=== PATIENT | female | born 1970 | race Caucasian/White ===

== ENCOUNTER 2016-12-01 11:55 | Emergency (ER) | payer MEDICAID ==
--- NOTE | 2016-12-01 12:49 | ED Physician Chart ---
Chief Complaint/HPI - Patient Information Date Seen:: 12/01/16 Time Seen:: 12:35 Chief Complaint:: right earache, cough, headache and subjective fever History of Present Illness:: The patient had onset yesterday of right earache cough, headache and subjective fever. Allergies:: Allergies Allergy/AdvReac Type Severity Reaction Status Date / Time No Known Allergies Allergy Verified 02/13/16 13:14 Vitals:: Vital Signs - 8 hr 12/01/16 12:08 Temp 98.7 F HR 67 RR 16 O2 Sat % 96 Historian:: Patient Review:: Nurse's Note Reviewed Review of Systems - Review of Systems General/Constitutional: Fever Skin: No skin lesions Head: Headache Eyes: No loss of vision ENT: Earache Neck: No neck pain Cardio Vascular: No chest pain Pulmonary: No SOB, No cough GI: No nausea, No vomiting G/U: No dysuria Musculoskeletal: No bone or joint pain, No back pain, No muscle pain Endocrine: No polyuria, No polydipsia Psychiatric: No prior psych history Hematopoietic: No bruising Allergic/Immuno: No urticaria Neurological: No syncope, No focal symptoms, No dizziness Past Medical History - Past Medical History Past Medical History: No significant medical hx Family History: None Social History: Non Smoker, No Alcohol Surgical History: None Psychiatricy History: None Medication: None Family Medical History - Family Member Father History Unknown: Yes Ethnicity: Living Status: Hx Family Cancer: No Hx Family Coronary Artery Disease: No Hx Family Congestive Heart Failure: No Hx Family Hypertension: No Hx Family Stroke: No Hx Family Diabetes: Yes Hx Family Seizures: No Hx Family Dementia: No Hx Family AIDS: No Hx Family HIV: No Hx Family COPD: No Hx Family Hepatitis: No Hx Family Psychiatric Problems: No Hx Family Tuberculosis: No Mother History Unknown: Yes Ethnicity: Living Status: Still Living Hx Family Diabetes: Yes Physical Exam - Physical Examination General/Constitutional: Well-developed, well-nourished, Alert, No distress Head: Atraumatic Eyes: Lids, conjuctiva normal, PERRL Skin: Nl inspection, No rash, No skin lesions, No ecchymosis, Well hydrated, No lymphadenopathy ENMT: External ears, nose nl, Nasal exam nl, Lips, teeth, gums nl, Oropharynx nl , Tonsils nl Other ENMT comments:: About 20% of right tympanic membrane erythematous; left tympanic membrane clear Neck: No nuchal rigidity Respiratory: Nl effort/Exclusion, Clear to Auscultation, No Wheeze/Rhonchi/Rales Cardio Vascular: RRR, No murmur, gallop, rubs GI: No tenderness/rebounding/guarding, No organomegaly, No hernia, Normal BS's, Nondistended, No mass/bruits : No CVA tenderness Extremities: No tenderness or effusion Neuro/Psych: Alert/oriented Misc: Normal back, No paraspinal tenderness ED Septic Shock - . Is Septic Shock (SBP<90, OR Lactate>4 mmol\L) present?: No - <6hrs of presentation: Vital Signs: Vital Signs - 8 hr 12/01/16 12:08 Temp 98.7 F HR 67 RR 16 O2 Sat % 96 Reassessment (Disposition) - Reassessment Reassessment Condition:: Unchanged - Diagnosis Diagnosis:: Acute viral syndrome; right otitis media - Aftercare/Follow up Instructions Aftercare/Follow-Up Instructions:: Refer to Discharge Instructions Medication Prescribed:: Amoxicillin 500 mg 3 times a day for 1 week - Patient Disposition Discharge/Transfer:: Home Condition at Disposition:: Stable, Unchanged
== END 2016-12-01 13:30 | disposition home or self-care (01) ==
LOC: ER 11:55
DX: B34.9 Viral infection, unspecified (principal); H66.91 Otitis media, unspecified, right ear
CPT/HCPCS: Z7502

== ENCOUNTER 2017-03-22 20:16 | Emergency (ER) | payer MEDICAID ==
[2017-03-22] MEDS ORDERED: Bacitracin pkt 1 gm Pkt TP ONE (21:41)
--- NOTE | 2017-03-22 21:53 | ED Physician Chart ---
ED Chief Complaint/HPI - Patient Information Date Seen:: 03/22/17 Time Seen:: 21:15 Chief Complaint:: Right elbow laceration History of Present Illness:: 46 yo female had a laceration to her right elbow when she tripped and fell in the bathroom a few hours prior to ER visit. The laceration did not affect ROM of the right elbow joint. Allergies:: Allergies Allergy/AdvReac Type Severity Reaction Status Date / Time No Known Allergies Allergy Verified 03/22/17 20:25 Vitals:: Vital Signs - 8 hr 03/22/17 20:20 Temp 97.9 F HR 69 RR 18 BP 140/87 O2 Sat % 97 ED Review of Systems - Review of Systems General/Constitutional: No fever Skin: Skin lesions Head: No headache Eyes: No loss of vision ENT: No earache Neck: No neck pain Cardio Vascular: No chest pain Pulmonary: No SOB GI: No nausea Psychiatric: No prior psych history ED Past Medical History - Past Medical History Past Medical History: No significant medical hx Social History: Non Smoker, No Alcohol, No Drug Use Family Medical History - Family Member Father History Unknown: Yes Ethnicity: Living Status: Hx Family Cancer: No Hx Family Coronary Artery Disease: No Hx Family Congestive Heart Failure: No Hx Family Hypertension: No Hx Family Stroke: No Hx Family Diabetes: Yes Hx Family Seizures: No Hx Family Dementia: No Hx Family AIDS: No Hx Family HIV: No Hx Family COPD: No Hx Family Hepatitis: No Hx Family Psychiatric Problems: No Hx Family Tuberculosis: No Mother History Unknown: Yes Ethnicity: Living Status: Still Living Hx Family Diabetes: Yes ED Physical Exam - Physical Examination General/Constitutional: Awake Head: Atraumatic Eyes: PERRL Neck: No nuchal rigidity Respiratory: Clear to Auscultation Cardio Vascular: RRR, No murmur, gallop, rubs, NL S1 S2 GI: No tenderness/rebounding/guarding Other Extremities comments:: Right posterior elbow laceration 4cm in length, the depth of laceration to subcutaneous level. ROM of the right elbow joint appear to be intact. ED Assessment - Assessment General Assessment: Right elbow laceration Assessment/Comments:: Laceration repair TDap Keflex 500mg bid x 7 days Suture removal in 10-14 days Location:: Right posterior elbow Laceration Type:: Simple Wound Length: 4 cm Prep/Irrigation:: NS, hydrogen peroxide, betadine Comments: After local anesthesia with 1% lidocaine, three horizontal mattress sutures with 3.0 Prolene were placed. Patient tolerated well. ED Septic Shock - . Is Septic Shock (SBP<90, OR Lactate>4 mmol\L) present?: No - <6hrs of presentation: Vital Signs: Vital Signs - 8 hr 03/22/17 20:20 Temp 97.9 F HR 69 RR 18 BP 140/87 O2 Sat % 97 ED Reassessment (Disposition) - Reassessment Reassessment Condition:: Improved - Patient Disposition Discharge/Transfer:: Home ED Discharge Plan - Patient Disposition Admit/Discharge/Transfer: PT DISCHARGED HOME Condition at Disposition: Improved Prescriptions: Cephalexin [Keflex] 500 mg PO BID #10 cap Instructions: Laceration Care, Adult Additional Instructions: FOLLOW UP WITH YOUR REGULAR DOCTOR FOR SUTURE REMOVAL.
== END 2017-03-22 22:15 | disposition home or self-care (01) ==
LOC: ER 20:16
DX: S51.011A Laceration without foreign body of right elbow, initial encounter (principal); W01.0XXA Fall on same level from slipping, tripping and stumbling without subsequent striking against object, initial encounter; Y93.89 Activity, other specified; Y92.012 Bathroom of single-family (private) house as the place of occurrence of the external cause; Y99.8 Other external cause status
CPT/HCPCS: 12002; A4217; Z7502; Z7610

== ENCOUNTER 2017-04-08 20:51 | Emergency (ER) | payer MEDICAID ==
--- NOTE | 2017-04-08 22:30 | ER Physician Documentation ---
DATE OF SERVICE: 04/08/2017 EMERGENCY ROOM EVALUATION AND TREATMENT A 46-year-old female patient. Full code. This is a patient who came here and had injury into the right elbow and one of our ER colleague did 3 stitches on the patient on 03/23 at 1917. She was advised to come back in 5-7 days, but she did not come. She said she was busy and she came today for removal of the stitches. The area was cleaned with Betadine solution and then the stitches were removed and the scissor was discarded into the section behind the patient's bed and other objects were thrown away. Sterile dressing will be applied by the nurse in charge over there. The patient does not have any other significant illness. She had x 1. PHYSICAL EXAMINATION: Her vital signs were temperature 97.1, pulse of 67, respirations 18. Blood pressure was 139/92, slightly high, but may be because of anxiety. Code status was full. ALLERGIES: None known. So, the patient was examined and the 3 stitches that were there were removed and no residual stitches were left in place and the dressing will be applied with Band-Aid or with some bacitracin or Neosporin and then patient will go home. No need of any antibiotics etc., need to be given. In conclusion, the patient has 1 in the past and right now, the patient had 3 stitches that were removed by me without any complication. The patient will be notified that she has mild hypertension to keep an eye on the blood pressure and to take low salt and to follow up with her doctor. Dr. Carbone dictating this note on the patient, who came here for suture removal. JOB# [id number]
== END 2017-04-08 21:15 | disposition home or self-care (01) ==
LOC: ER 20:51
DX: Z48.02 Encounter for removal of sutures (principal)
CPT/HCPCS: Z7502

== ENCOUNTER 2017-09-03 17:20 | Emergency (ER) | payer MEDICAID ==
[2017-09-03] MEDS ORDERED: Sodium Chloride 0.9% 1,000 ML IV ONE (18:20)
--- NOTE | 2017-09-03 18:29 | ED Physician Chart ---
ED Chief Complaint/HPI - Patient Information Date Seen:: 09/03/17 Time Seen:: 18:00 Chief Complaint:: fever headache sorethroat History of Present Illness:: 47 yr old female with sore throat headache fever no vomiting some nausea no dizziness no surgeries no cough but fever no recent travel Allergies:: Allergies Allergy/AdvReac Type Severity Reaction Status Date / Time No Known Allergies Allergy Verified 04/08/17 21:04 Vitals:: Vital Signs - 8 hr 09/03/17 17:27 Temp 100.3 F HR 119 RR 22 BP 154/78 O2 Sat % 97 ED Review of Systems - Review of Systems General/Constitutional: No fever, No chills, No weight loss, No weakness, No diaphoresis, No edema, No loss of appetite Skin: No skin lesions, No rash, No bruising Head: Headache Eyes: No loss of vision, No pain, No diplopia ENT: Sore throat Neck: No neck pain, No swelling, No thyromegaly, No stiffness, No mass noted Cardio Vascular: No chest pain, No palpitations, No PND, No orthopnea, No edema Pulmonary: No SOB, No cough, No sputum, No wheezing GI: No nausea, No vomiting, No diarrhea, No pain, No melena, No hematochezia, No constipation, No hematemesis G/U: No dysuria, No frequency, No hematuria Musculoskeletal: No bone or joint pain, No back pain, No muscle pain Endocrine: No polyuria, No polydipsia Psychiatric: No prior psych history, No depression, No anxiety, No suicidal ideation Hematopoietic: No bruising, No lymphadenopathy Allergic/Immuno: No urticaria, No angioedema Neurological: No syncope, No focal symptoms, No weakness, No paresthesia, No headache, No seizure, No dizziness, No confusion, No vertigo ED Past Medical History - Past Medical History Past Medical History: No significant medical hx Family Medical History - Family Member Father History Unknown: Yes Ethnicity: Living Status: Hx Family Cancer: No Hx Family Coronary Artery Disease: No Hx Family Congestive Heart Failure: No Hx Family Hypertension: No Hx Family Stroke: No Hx Family Diabetes: Yes Hx Family Seizures: No Hx Family Dementia: No Hx Family AIDS: No Hx Family HIV: No Hx Family COPD: No Hx Family Hepatitis: No Hx Family Psychiatric Problems: No Hx Family Tuberculosis: No Mother History Unknown: Yes Ethnicity: Living Status: Still Living Hx Family Diabetes: Yes ED Physical Exam - Physical Examination General/Constitutional: Awake, Well-developed, well-nourished, Alert, No distress, GCS 15, Non-toxic appearing, Ambulatory Head: Atraumatic Eyes: Lids, conjuctiva normal, PERRL, EOMI Skin: Nl inspection, No rash, No skin lesions, No ecchymosis, Well hydrated, No lymphadenopathy ENMT: External ears, nose nl, Nasal exam nl, Lips, teeth, gums nl Neck: Nontender, Full ROM w/o pain, No JVD, No nuchal rigidity, No bruit, No mass, No stridor Respiratory: Nl effort/Exclusion, Clear to Auscultation, No Wheeze/Rhonchi/Rales Cardio Vascular: RRR, No murmur, gallop, rubs, NL S1 S2 GI: No tenderness/rebounding/guarding, No organomegaly, No hernia, Normal BS's, Nondistended, No mass/bruits, No McBurney tenderness : No CVA tenderness Extremities: No tenderness or effusion, Full ROM, normal strength in all extremities, No edema, Normal digits & nails Neuro/Psych: Alert/oriented, DTR's symmetric, Normal sensory exam, Normal motor strength, Judgement/insight normal, Mood normal, Normal gait, No focal deficits Misc: Normal back, No paraspinal tenderness ED Assessment - Assessment General Assessment: fever headache sorethroat ED Septic Shock - . Is Septic Shock (SBP<90, OR Lactate>4 mmol\L) present?: No - <6hrs of presentation: Vital Signs: Vital Signs - 8 hr 09/03/17 17:27 Temp 100.3 F HR 119 RR 22 BP 154/78 O2 Sat % 97 ED Reassessment (Disposition) - Reassessment Reassessment Condition:: Improved - Patient Disposition Discharge/Transfer:: Home
[2017-09-03 18:41] LABS: % BASOPHILS 0.6 % (0.0-2.0); % EOSINOPHILS 1.2 % (0.0-5.0); % LYMPHOCYTES 7.9 % (20.0-50.0); % NEUTROPHILS 82.3 % (40.0-80.0); BASOPHILE ABSOLUTE 0.1 Th/cumm (0-0.2); EOSINOPHILE ABSOLUTE 0.2 Th/cmm (0.1-0.4); HEMATOCRIT 40.2 % (41.0-60); HEMOGLOBIN 13.2 gm/dL (12-16); LYMPHOCYTE ABSOLUTE 1.2 Th/cmm (1.5-3.0); MEAN CORPUSCULAR HEMOGLOBIN 30.5 pg (27.0-31.0); MEAN CORPUSCULAR HGB CONC 32.8 pg (28.0-36.0); MEAN PLATELET VOLUME 8.3 fl; MONOCYTE ABSOLUTE 1.2 Th/cmm (0.3-1.0); NEUTROPHILE ABSOLUTE 12.3 Th/cmm (1.8-8.0); PLATELET COUNT 274 Th/cmm (150-400); RED BLOOD COUNT 4.33 Mil/cmm (3.80-5.10); RED CELL DISTRIBUTION WIDTH 12.2 % (11.5-20.0)
[2017-09-03 18:53] LABS: ALB/GLOB RATIO 1.1 (1.0-1.8); ALBUMIN 4.1 gm/dL (3.7-5.3); ALKALINE PHOSPHATASE 83 U/L (34-104); ANION GAP 12.6 (7.0-16.0); BILIRUBIN,TOTAL 0.9 mg/dL (0.3-1.0); BUN - UREA NITROGEN 10 mg/dL (7-25); CALCIUM SERUM 9.1 mg/dL (8.6-10.3); CARBON DIOXIDE 23.8 mEq/L (21.0-31.0); CHLORIDE 101 mEq/L (98-107); CREATININE - SERUM 0.7 mg/dL (0.6-1.2); GFR AFRICAN-AMERICAN > 60.0 ml/min (>90); GFR NON AFRICAN-AMERICAN > 60.0 ml/min; GLUCOSE 112 mg/dL (70-105); POTASSIUM SERUM 3.4 mEq/L (3.5-5.1); SGOT 29 U/L (13-39); SGPT/ALT 33 U/L (7-52); SODIUM SERUM 134 mEq/L (136-145); TOTAL PROTEIN,SERUM 7.7 gm/dL (6.0-8.3)
[2017-09-03 19:01] LABS: URINE MICROSCOPIC INDICATED? YES; URINE SOURCE CLEAN C
[2017-09-03 19:03] LABS: URINE BILIRUBIN NEGATIVE (NEGATIVE); URINE BLOOD LARGE (NEGATIVE); URINE GLUCOSE (UA) NEGATIVE (NEGATIVE); URINE KETONE NEGATIVE (NEGATIVE); URINE LEUKOCYTE ESTERASE NEGATIVE (NEGATIVE); URINE NITRATE NEGATIVE (NEGATIVE); URINE PH 5.5 (4.6 - 8.0); URINE PROTEIN NEGATIVE (NEGATIVE); URINE UROBILINOGEN 0.2 E.U./dL (0.2 - 1.0)
[2017-09-03 19:06] LABS: URINE CLARITY CLEAR (CLEAR); URINE COLOR YELLOW
[2017-09-03 19:08] LABS: URINE BACTERIA 1+ /hpf (NONE SEEN); URINE EPITHELIAL CELLS FEW /lpf (FEW)
--- NOTE | 2017-09-04 08:28 | Diagnostic Imaging Report ---
CHEST X-RAY: AP view INDICATION: Shortness of breath COMPARISON: 02/15/2016 FINDINGS: Mild increased interstitial lung markings are noted. Suboptimal lung volumes are noted. Slight increased left basal lung markings are noted. There is no focal consolidation or pleural effusions . Borderline cardiomegaly is noted.. The osseous structures demonstrate no acute abnormalities. IMPRESSION: Mild increased interstitial lung markings, nonspecific. No evidence of les CHF. Slight increase left basal lung markings which may due to atelectasis. Underlying infiltrate is less likely. Borderline prominent heart.
== END 2017-09-03 20:03 | disposition home or self-care (01) ==
LOC: ER 17:20
DX: J02.9 Acute pharyngitis, unspecified (principal); R51 Headache; R50.9 Fever, unspecified
CPT/HCPCS: 36415-UA; 71045-TC; 80053-TC; 81001-TC; 81025-TC; 83605; 85007-TC; 85025-TC; 85027-TC; 93005; J7030

== ENCOUNTER 2018-05-19 16:45 | Inpatient (IN) | payer MEDICAID ==
--- NOTE | 2018-05-19 17:02 | ED Physician Chart ---
ED Chief Complaint/HPI - Patient Information Date Seen:: 05/19/18 Time Seen:: 16:57 Chief Complaint:: back pain History of Present Illness:: this is a 48 yo female who has been here many times for uri symptoms and also has flank pain today with a fever. Allergies:: Allergies Allergy/AdvReac Type Severity Reaction Status Date / Time No Known Allergies Allergy Verified 04/08/17 21:04 Historian:: Patient Review:: Nurse's Note Reviewed, Old Chart Reviewed ED Review of Systems - Review of Systems General/Constitutional: Fever, No chills, No weight loss, No weakness, No diaphoresis, No edema, No loss of appetite Skin: No skin lesions, No rash, No bruising Head: No headache, No light-headedness Eyes: No loss of vision, No pain, No diplopia ENT: No earache, No nasal drainage, No sore throat, No tinnitus Neck: No neck pain, No swelling, No thyromegaly, No stiffness, No mass noted Cardio Vascular: No chest pain, No palpitations, No PND, No orthopnea, No edema Pulmonary: No SOB, Cough, No sputum, Wheezing GI: No nausea, No vomiting, No diarrhea, No pain, No melena, No hematochezia, No constipation, No hematemesis G/U: No dysuria, No frequency, No hematuria Musculoskeletal: No bone or joint pain, No back pain, No muscle pain Endocrine: No polyuria, No polydipsia Psychiatric: No prior psych history, No depression, No anxiety, No suicidal ideation Hematopoietic: No bruising, No lymphadenopathy Allergic/Immuno: No urticaria, No angioedema Neurological: No syncope, No focal symptoms, No weakness, No paresthesia, No headache, No seizure, No dizziness, No confusion, No vertigo ED Past Medical History - Past Medical History Obtainable: Yes Past Medical History: Asthma/COPD, Renal stone Family History: None Social History: Non Smoker, No Alcohol, No Drug Use, Employed Surgical History: None Family Medical History - Family Member Father History Unknown: Yes Ethnicity: Living Status: Hx Family Cancer: No Hx Family Coronary Artery Disease: No Hx Family Congestive Heart Failure: No Hx Family Hypertension: No Hx Family Stroke: No Hx Family Diabetes: Yes Hx Family Seizures: No Hx Family Dementia: No Hx Family AIDS: No Hx Family HIV: No Hx Family COPD: No Hx Family Hepatitis: No Hx Family Psychiatric Problems: No Hx Family Tuberculosis: No Mother History Unknown: Yes Ethnicity: Living Status: Still Living Hx Family Diabetes: Yes ED Physical Exam - Physical Examination General/Constitutional: Awake, Well-developed, well-nourished, Alert, No distress, GCS 15, Non-toxic appearing, Ambulatory Head: Atraumatic Eyes: Lids, conjuctiva normal, PERRL, EOMI Skin: Nl inspection, No rash, No skin lesions, No ecchymosis, Well hydrated, No lymphadenopathy ENMT: External ears, nose nl, Nasal exam nl, Lips, teeth, gums nl Neck: Nontender, Full ROM w/o pain, No JVD, No nuchal rigidity, No bruit, No mass, No stridor Respiratory: Nl effort/Exclusion, Clear to Auscultation, No Wheeze/Rhonchi/ Rales (bilateral rhonchi) Cardio Vascular: RRR, No murmur, gallop, rubs, NL S1 S2 GI: No tenderness/rebounding/guarding, No organomegaly, No hernia, Normal BS's, Nondistended, No mass/bruits, No McBurney tenderness : No CVA tenderness Extremities: No tenderness or effusion, Full ROM, normal strength in all extremities, No edema, Normal digits & nails Neuro/Psych: Alert/oriented, DTR's symmetric, Normal sensory exam, Normal motor strength, Judgement/insight normal, Mood normal, Normal gait, No focal deficits Misc: Normal back, No paraspinal tenderness ED Assessment - Assessment General Assessment: uri uti ED Septic Shock - . Is Septic Shock (SBP<90, OR Lactate>4 mmol\L) present?: No ED Reassessment (Disposition) - Reassessment Reassessment Condition:: Improved - Diagnosis Diagnosis:: urinary tract infection - Patient Disposition Discharge/Transfer:: Acute Care w/in this hosp Admitted to:: Med/Surg Admitting Medical Physician:: [facility] Condition at Disposition:: Improved
[2018-05-19 17:20] LABS: % BASOPHILS 0.1 % (0.0-2.0); % EOSINOPHILS 3.3 % (0.0-5.0); % LYMPHOCYTES 9.6 % (20.0-50.0); % MONOCYTES 5.5 % (2.0-10.0); % NEUTROPHILS 81.5 % (40.0-80.0); EOSINOPHILE ABSOLUTE 0.5 Th/cmm (0.1-0.4); HEMATOCRIT 36.9 % (41.0-60); HEMOGLOBIN 12.6 gm/dL (12-16); LYMPHOCYTE ABSOLUTE 1.5 Th/cmm (1.5-3.0); MEAN CELL VOLUME 89.8 fl (81-100); MEAN CORPUSCULAR HEMOGLOBIN 30.6 pg (27.0-31.0); MEAN PLATELET VOLUME 8.1 fl; MONOCYTE ABSOLUTE 0.8 Th/cmm (0.3-1.0); NEUTROPHILE ABSOLUTE 12.4 Th/cmm (1.8-8.0); PLATELET COUNT 288 Th/cmm (150-400); RED BLOOD COUNT 4.11 Mil/cmm (3.80-5.10); RED CELL DISTRIBUTION WIDTH 11.3 % (11.5-20.0)
[2018-05-19 17:27] LABS: WHITE BLOOD COUNT 15.2 Th/cmm (4.8-10.8)
[2018-05-19 17:35] LABS: ALB/GLOB RATIO 1.4 (1.0-1.8); ALKALINE PHOSPHATASE 74 U/L (34-104); ANION GAP 13.8 (7.0-16.0); BILIRUBIN,TOTAL 0.7 mg/dL (0.3-1.0); BUN - UREA NITROGEN 12 mg/dL (7-25); CALCIUM SERUM 8.7 mg/dL (8.6-10.3); CARBON DIOXIDE 25.5 mEq/L (21.0-31.0); CHLORIDE 101 mEq/L (98-107); CREATININE - SERUM 0.7 mg/dL (0.6-1.2); GFR AFRICAN-AMERICAN > 60.0 ml/min (>90); GFR NON AFRICAN-AMERICAN > 60.0 ml/min; GLUCOSE 147 mg/dL (70-105); POTASSIUM SERUM 3.3 mEq/L (3.5-5.1); SGOT 18 U/L (13-39); SGPT/ALT 21 U/L (7-52); SODIUM SERUM 137 mEq/L (136-145); TOTAL PROTEIN,SERUM 6.9 gm/dL (6.0-8.3)
[2018-05-19] MEDS ORDERED: Potassium Chloride Elixir 20 mEq /15 mL UDC PO ONE ×2 (17:38→17:40)
[2018-05-19] MEDS ORDERED: Potassium Chloride 20 mEq ER Tab PO ONE (17:46)
[2018-05-19 17:52] LABS: URINE SOURCE RANDOM
[2018-05-19 17:54] LABS: URINE BILIRUBIN NEGATIVE (NEGATIVE); URINE BLOOD MODERATE (NEGATIVE); URINE GLUCOSE (UA) NEGATIVE (NEGATIVE); URINE KETONE NEGATIVE (NEGATIVE); URINE LEUKOCYTE ESTERASE NEGATIVE (NEGATIVE); URINE MICROSCOPIC INDICATED? YES; URINE NITRATE NEGATIVE (NEGATIVE); URINE PROTEIN NEGATIVE (NEGATIVE); URINE UROBILINOGEN 0.2 E.U./dL (0.2 - 1.0)
[2018-05-19 18:10] LABS: URINE CLARITY HAZY (CLEAR); URINE COLOR YELLOW
[2018-05-19 18:12] LABS: URINE BACTERIA MODERATE /hpf (NONE SEEN); URINE EPITHELIAL CELLS FEW /lpf (FEW); URINE RBC NONE SEEN /hpf (0-5)
[2018-05-19] MEDS ORDERED: Levofloxacin 250mg/50mL 250 MG/50 ML BAG IV ONE ×2 (19:01→19:17)
[2018-05-19] MEDS ORDERED: Acetaminophen 500 MG TAB PO ONE (19:47)
[2018-05-19] MEDS ORDERED: Sodium Chloride 0.9% 1,000 ML IV ONE (19:51)
[2018-05-19] MEDS ORDERED: Acetaminophen 500 MG TAB ONE ×2 (19:55→20:00)
[2018-05-19 23:43] VITALS: BP 134/68
[2018-05-19] MEDS: Azithromycin 500 MG in Sodium Chloride 0.9% 250 ML IV SCH (23:59)
[2018-05-20] MEDS ORDERED: Pneumococcal Vaccine 0.5 mL Vial IM ONE (06:00)
[2018-05-20 06:43] LABS: % BASOPHILS 0.4 % (0.0-2.0); % EOSINOPHILS 7.4 % (0.0-5.0); % LYMPHOCYTES 18.7 % (20.0-50.0); % MONOCYTES 9.9 % (2.0-10.0); % NEUTROPHILS 63.6 % (40.0-80.0); EOSINOPHILE ABSOLUTE 0.7 Th/cmm (0.1-0.4); HEMATOCRIT 34.8 % (41.0-60); HEMOGLOBIN 11.9 gm/dL (12-16); LYMPHOCYTE ABSOLUTE 1.8 Th/cmm (1.5-3.0); MEAN CELL VOLUME 91.1 fl (81-100); MEAN CORPUSCULAR HEMOGLOBIN 31.2 pg (27.0-31.0); MEAN CORPUSCULAR HGB CONC 34.3 pg (28.0-36.0); NEUTROPHILE ABSOLUTE 6.1 Th/cmm (1.8-8.0); PLATELET COUNT 263 Th/cmm (150-400); RED BLOOD COUNT 3.82 Mil/cmm (3.80-5.10); RED CELL DISTRIBUTION WIDTH 11.6 % (11.5-20.0)
[2018-05-20 06:47] LABS: ALBUMIN 3.5 gm/dL (3.7-5.3); ANION GAP 10.1 (7.0-16.0); BUN - UREA NITROGEN 9 mg/dL (7-25); CALCIUM SERUM 8.1 mg/dL (8.6-10.3); CARBON DIOXIDE 26.3 mEq/L (21.0-31.0); CHLORIDE 107 mEq/L (98-107); CREATININE - SERUM 0.6 mg/dL (0.6-1.2); GFR AFRICAN-AMERICAN > 60.0 ml/min (>90); GFR NON AFRICAN-AMERICAN > 60.0 ml/min; GLUCOSE 96 mg/dL (70-105); POTASSIUM SERUM 3.4 mEq/L (3.5-5.1); SODIUM SERUM 140 mEq/L (136-145); TOTAL PROTEIN,SERUM 6.1 gm/dL (6.0-8.3)
[2018-05-20 06:48] LABS: ALB/GLOB RATIO 1.4 (1.0-1.8); ALKALINE PHOSPHATASE 66 U/L (34-104); SGOT 17 U/L (13-39); SGPT/ALT 20 U/L (7-52)
[2018-05-20 06:56] LABS: WHITE BLOOD COUNT 9.6 Th/cmm (4.8-10.8)
[2018-05-20 08:48] LABS: ESR SEDIMENTATION SED RATE 52 mm/hr (0-30)
--- NOTE | 2018-05-20 09:45 | Diagnostic Imaging Report ---
CHEST X-RAY: AP view INDICATION: Cough COMPARISON: 09/03/2017 FINDINGS: Left retrocardiac increased density is noted. There is no focal consolidation or pleural effusions The heart is normal in size. The osseous structures demonstrate no acute abnormalities. IMPRESSION: Left retrocardiac increased density. Please refer to CT for further findings of cavitating lesion.
--- NOTE | 2018-05-20 10:05 | Diagnostic Imaging Report ---
CT Chest without IV contrast HISTORY: Cavitating lung lesion COMPARISON: CT abdomen and pelvis the same day and previous CT chest on 12/19/2015. Technique: Axial images were obtained from the base of the neck to the upper abdomen without IV contrast. Multiplanar reconstructions were made. Total DLP 292, CTD I 17.7 Findings: Evaluation of the mediastinum is limited due to lack of IV contrast. No evidence of mediastinal lymphadenopathy. No evidence of an aortic aneurysm. Few calcified granulomas of the left posterior hilar region are noted. The heart size is normal. No pericardial effusion identified. Evaluation of the lungs again demonstrates a 5.1 x 3.2 cm left lower lobe region along the medial aspect with cavitations and surrounding airspace disease. Calcified granulomas are also seen in these regions. There is also a 5 mm nodule adjacent to the left pleura which may have also be seen on prior exam. Hypoventilatory changes of the left lung base are also noted. The osseous structures demonstrate no acute abnormalities. Mild degenerative changes are noted. There is also mild scoliosis. IMPRESSION: Left lower lobe cavitating lesion along the medial aspect with surrounding airspace disease and infiltrates. Granulomas and calcifications are also seen in this region. As similar findings were seen on prior exam on 12/19/2015, findings are probably due to old infectious or inflammatory process. Neoplastic process is considered less likely. Reactivation tuberculosis cannot be completely excluded. Clinical correlation follow up recommended. 5 mm nodule along the pleural border of the left lower lobe. This appears to be seen on prior exam and is probably due to old infectious or inflammatory process. Consider follow-up surveillance.
--- NOTE | 2018-05-20 10:09 | Diagnostic Imaging Report ---
CT abdomen and pelvis without intravenous contrast Indication: Left renal stone Comparison: CT abdomen and pelvis on 02/03/2016, Technique: Axial images were obtained from the lung bases to the bilateral proximal femurs without IV contrast. Coronal reconstructions were made. total DLP: 543, CTDI11.8 FINDINGS: Left lower lobe cavitating lesion is noted. Please refer to CT chest the same day for further details. Assessment of the solid organs is limited due to lack of IV contrast. No focal hepatic lesions. No focal splenic lesions. No focal pancreatic lesions. No focal adrenal lesions. No hydronephrosis or evidence of renal stones. Moderate stool is noted. No bowel obstruction. No appendicitis. No free fluid or free air. Distended stomach is noted with fluid contents. Degenerative changes of the spine are noted. IMPRESSION: Left lower lobe cavitating lesion. Please refer to CT chest performed the same day for further details. No evidence of hydronephrosis or nephrolithiasis. Distended stomach with food contents. Moderate stool throughout the colon.
--- NOTE | 2018-05-20 14:08 | History & Physical ---
ADMIT DATE: 05/20/2018 PATIENT IDENTIFICATION: A 48-year-old female. CHIEF COMPLAINT: Fever, cough, and congestion for last 5 days. HISTORY OF PRESENT ILLNESS: A 48-year-old [place] female born in [place], has been in the [place] for many years, currently working in the restaurant, has ongoing symptoms of cough and congestion for last few years. The patient was seen by Emergency Room on November in 2015 where the patient had a CT scan of chest, which did reveal left lower lobe pneumonia with cavitary lesion. For that, the patient was treated for pneumonia as an outpatient. The patient's symptoms at that time were resolved, but subsequently the patient had multiple visits to Emergency Room and the patient was treated for pneumonia and asthma exacerbation. The patient was treated multiple times with antibiotic and some steroid. The patient did present herself to Emergency Room on 05/19/2018 for symptoms of cough and congestion, and the patient was evaluated by Emergency Room MD. The patient was diagnosed to have a left lower lobe cavitary lesion. The patient is advised to be admitted for further treatment. The patient stated that she has been diagnosed with arthritis, but does not know the name. She has not been on any medications for that. She has been followed by hide examiner, Dr. Jennifer Gutierrez in [facility]. The patient stated that she is not taking any medications on a daily basis. The patient presented last night with the symptoms of cough and congestion. She did not have any associated fever or evening rise of temperature or any weight loss. The patient has some chills. PAST MEDICAL HISTORY: None. MEDICATIONS AT HOME: None. ALLERGIES: None. SOCIAL HISTORY: She was born in [place]. She lives in [facility]. The patient does not smoke cigarettes and does not drink alcohol. No history of any immunocompromised state. The patient has no history of any drug use. FAMILY MEDICAL HISTORY: Negative for any tuberculosis or any diabetes or hypertension. REVIEW OF SYSTEMS: The patient denies any headache, blurred vision, double vision, dysphagia, odynophagia, runny nose, stuffy nose, fever, chills, cough, abdominal pain, nausea, vomiting, hematemesis, hematuria, hematochezia, or melena. No history of hemoptysis. No history of any seizure or syncopal episode. No history of weight loss. PAST SURGICAL HISTORY: Remarkable for . PHYSICAL EXAMINATION: GENERAL: A 48-year-old, alert, awake, oriented, well built, lying in the bed without any acute distress. VITAL SIGNS: Temperature 97.7, pulse 76, respiratory rate 18, and blood pressure 145/65. SKIN: No petechia. No purpura. HEENT: Normocephalic and atraumatic. Extraocular muscles are intact. Tongue was pink and coated. Poor dentition noted. No oral lesion. No exudate. No sinus tenderness. External auditory canal and tympanic membranes are well visualized. NECK: Supple. No JVD. No hepatojugular reflux. No lymphadenopathy, thyromegaly, or carotid bruit. HEART: Both heart sounds are regular. No S3. No S4. No murmur. CHEST: Lung equal in expansion. No expiratory wheezing. Decreased breath sound on the left base is noted. ABDOMEN: Bowel sounds are present. EXTREMITIES: No edema. No cyanosis. No clubbing. Peripheral pulses +2. No calf tenderness noted. NEUROLOGIC: Nonfocal. CLINICAL IMPRESSION: A 48-year-old [place] female has been diagnosed with questionable arthritis, having symptoms of cough, congestion, shortness of breath for last few years intermittently, noted to have abnormal CT scan of chest which is in 2016 and 2019. Based on that, differential diagnosis for cavitary lesion with air-fluid level includes: 1. Tuberculosis. 2. Inflammatory nodules causing her to have symptoms like rheumatoid arthritis or any connective tissue disease like vasculitis, which is I doubt. Differential diagnosis, of course, consideration of the fungal as well. PLAN: The patient will be admitted to Med/Surg floor with respiratory isolation. Meanwhile, we will put the patient on broad-spectrum antibiotic with azithromycin and Zosyn for now. Infectious Disease and Pulmonary consultation will be requested. The patient will have a RA factor, SHELLI with reflex along with ANCA with reflex will be done. Blood cultures x 2 has been requested. Sputum Gram stain, C and S, has been requested along with AFB x 3 has been requested as well. Further recommendations will be obtained once the patient will be seen by Infectious Disease as well as Pulmonary. The patient will require further studies based on other diagnostic data available. The patient will be given nutritional support as well. Other differential diagnosis for this lesion is aspiration pneumonia with cavitary lesion is always there, though I doubt considering the patient is very young and she has no difficulty in swallowing. Community-acquired pneumonia with abscess also consideration along with a bronchiectasis as well, which all has been considered and appropriate diagnostic study has been ordered. Treatment plan has been discussed with the patient via software development project manager. JOB# [id number]
[2018-05-20] MEDS: Azithromycin 500 MG in Sodium Chloride 0.9% 250 ML IV SCH (22:18)
--- NOTE | 2018-05-21 05:14 | Consultation ---
DATE OF CONSULTATION: 05/20/2018 INFECTIOUS DISEASE CONSULTATION REFERRING PHYSICIAN: Dr. David Hughes. REASON FOR CONSULTATION: Left lower lobe cavitary lesion. HISTORY OF PRESENT ILLNESS: The patient is a 48-year-old female with no significant past medical history, had multiple ER visits because of cough. Recently, she developed severe cough with fever, so she came to the ER for further evaluation and management. On initial evaluation, her temperature was 100.1 degrees Fahrenheit and WBC count was 15,200. Sepsis workup was performed and chest x-ray showed left retrocardiac density. CT was suggested to rule out any cavitary lesion. CT scan of the chest, abdomen and pelvis revealed left lower cavitary lesion, thick walled. Granuloma and ____ was also seen. Neoplastic versus tuberculosis suspected. A 5 mm nodules also seen in pleural border of the left lower lobe. The patient was put on isolation and AFB x 3 ordered. ID consult was called for further evaluation and management. Meanwhile, the patient was already started on Zosyn and azithromycin. ID consult was called for further antibiotic management. PAST MEDICAL HISTORY: Chronic cough. ALLERGIES: NKDA. MEDICATIONS: As per medication reconciliation sheet. Antibiotic baltazar, the patient is receiving azithromycin and Zosyn. 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 Born in [place]. FAMILY HISTORY: None significant. Ill contacts, none. REVIEW OF SYSTEMS: GENERAL: The patient has had fever, no chills. No diaphoresis. The patient denies any generalized weakness. HEENT: No diplopia, no photophobia, no sore throat. RESPIRATORY: The patient complains of cough, no shortness of breath. CARDIOVASCULAR: The patient denies any hemoptysis. GASTROINTESTINAL: The patient denies any nausea, vomiting, diarrhea or constipation. GENITOURINARY: No dysuria. NEUROLOGIC: No headache, no dizziness, no focal weakness. PHYSICAL EXAMINATION: VITAL SIGNS: Showed temperature 97.9 degrees Fahrenheit, pulse 67, respiration 18, blood pressure 136/74. GENERAL: The patient is comfortable, lying in the bed, not in acute distress. HEENT: Head is normocephalic, atraumatic. Oral cavity moist, pink tongue. NECK: Supple, no JVD, no carotid bruit. Trachea in midline. CHEST: Bilateral vesicular breath sounds. No crackles or wheezing. HEART: S1, S2 within normal limits. Regular rhythm. No murmur, no gallop. ABDOMEN: Soft, nontender, nondistended. Bowel sounds present. EXTREMITIES: No cyanosis, no clubbing, no edema. NEUROLOGICAL: Alert, awake, oriented x 3. No focal deficit. LABORATORY DATA: Current lab shows WBC count is 9600, hemoglobin 11.9, hematocrit 34.8, platelets are 263,000, neutrophil is 64%. Sodium 140, potassium 3.4, chloride 107, bicarbonate is 26.3, BUN is 9, creatinine is 0.6, glucose is 96. Urinalysis shows moderate blood with wbc's 6-10 and moderate bacteria. test negative. Urine culture is pending. Blood culture 1 set, no growth. Sputum cultures are poor specimen. Chest x-ray showed retrocardiac infiltrate. CT scan of abdomen and pelvis suggested left lower lobe cavitary lesion with a pleural based small nodule. IMPRESSION: 1. Sepsis on presentation. 2. Pneumonia, left lower lobe pneumonia. 3. Cavitary lesion in the left lung. 4. Chronic cough. 5. Mild urinary tract infection with hematuria. RECOMMENDATIONS: We will continue Zosyn and Zithromax. TB workup was initiated , including sputum for AFB x 3 and had a TB Gold QuantiFERON. Check histoplasma, blastomyces and fungal serology. Check HIV screen. Thank you, Dr. Hughes for involving me in taking care of this patient. JOB# [id number] GAURAV
[2018-05-21 09:28] LABS: INF A SCREEN NEG FOR INF A; INF B SCREEN NEG FOR INF B
--- NOTE | 2018-05-21 12:50 | Infectious Disease Prog Note ---
Infectious Disease Subjective - Review of Systems Service Date: 05/21/18 Subjective: There is no new change, no fever. Infectious Disease Objective - Results Result Diagrams: 05/20/18 06:06 05/20/18 06:06 Recent Labs: Laboratory Last Values WBC 9.6 Th/cmm (4.8-10.8) D 05/20/18 06:06 RBC 3.82 Mil/cmm (3.80-5.10) 05/20/18 06:06 Hgb 11.9 gm/dL (12-16) L 05/20/18 06:06 Hct 34.8 % (41.0-60) L 05/20/18 06:06 MCV 91.1 fl (81-100) 05/20/18 06:06 MCH 31.2 pg (27.0-31.0) H 05/20/18 06:06 MCHC Differential 34.3 pg (28.0-36.0) 05/20/18 06:06 RDW 11.6 % (11.5-20.0) 05/20/18 06:06 Plt Count 263 Th/cmm (150-400) 05/20/18 06:06 MPV 8.0 fl 05/20/18 06:06 Neutrophils % 63.6 % (40.0-80.0) 05/20/18 06:06 Lymphocytes % 18.7 % (20.0-50.0) L 05/20/18 06:06 Monocytes % 9.9 % (2.0-10.0) 05/20/18 06:06 Eosinophils % 7.4 % (0.0-5.0) H 05/20/18 06:06 Basophils % 0.4 % (0.0-2.0) 05/20/18 06:06 ESR 52 mm/hr (0-30) H 05/20/18 06:06 D-Dimer 271 ng/mL (100-400) 05/19/18 17:13 Sodium 140 mEq/L (136-145) 05/20/18 06:06 Potassium 3.4 mEq/L (3.5-5.1) L 05/20/18 06:06 Chloride 107 mEq/L (98-107) 05/20/18 06:06 Carbon Dioxide 26.3 mEq/L (21.0-31.0) 05/20/18 06:06 Anion Gap 10.1 (7.0-16.0) 05/20/18 06:06 BUN 9 mg/dL (7-25) 05/20/18 06:06 Creatinine 0.6 mg/dL (0.6-1.2) 05/20/18 06:06 Est GFR ( Amer) > 60.0 ml/min (>90) 05/20/18 06:06 Est GFR (Non-Af Amer) > 60.0 ml/min 05/20/18 06:06 BUN/Creatinine Ratio 15.0 05/20/18 06:06 Glucose 96 mg/dL (70-105) 05/20/18 06:06 Whole Bld Lactic Acid 1.64 mmol/L (0.60-1.99) 05/19/18 17:13 Calcium 8.1 mg/dL (8.6-10.3) L 05/20/18 06:06 Total Bilirubin 1.0 mg/dL (0.3-1.0) 05/20/18 06:06 AST 17 U/L (13-39) 05/20/18 06:06 ALT 20 U/L (7-52) 05/20/18 06:06 Alkaline Phosphatase 66 U/L (34-104) 05/20/18 06:06 Total Protein 6.1 gm/dL (6.0-8.3) 05/20/18 06:06 Albumin 3.5 gm/dL (3.7-5.3) L 05/20/18 06:06 Globulin 2.6 gm/dL 05/20/18 06:06 Albumin/Globulin Ratio 1.4 (1.0-1.8) 05/20/18 06:06 Urine Source RANDOM 05/19/18 17:30 Urine Color YELLOW 05/19/18 17:30 Urine Clarity HAZY (CLEAR) 05/19/18 17:30 Urine pH 6.0 (4.6 - 8.0) 05/19/18 17:30 Ur Specific Michie 1.010 (1.005-1.030) 05/19/18 17:30 Urine Protein NEGATIVE mg/dL (NEGATIVE) 05/19/18 17:30 Urine Glucose (UA) NEGATIVE mg/dL (NEGATIVE) 05/19/18 17:30 Urine Ketones NEGATIVE mg/dL (NEGATIVE) 05/19/18 17:30 Urine Blood MODERATE (NEGATIVE) H 05/19/18 17:30 Urine Nitrate NEGATIVE (NEGATIVE) 05/19/18 17:30 Urine Bilirubin NEGATIVE (NEGATIVE) 05/19/18 17:30 Urine Urobilinogen 0.2 E.U./dL (0.2 - 1.0) 05/19/18 17:30 Ur Leukocyte Esterase NEGATIVE (NEGATIVE) 05/19/18 17:30 Urine RBC NONE SEEN /hpf (0-5) 05/19/18 17:30 Urine WBC 6-10 /hpf (0-5) H 05/19/18 17:30 Ur Epithelial Cells FEW /lpf (FEW) 05/19/18 17:30 Urine Bacteria MODERATE /hpf (NONE SEEN) H 05/19/18 17:30 Urine Test NEGATIVE 05/19/18 17:15 Rheumatoid Factor 10.1 IU/mL (0.0-13.9) 05/20/18 13:33 HIV 1&2 Antibody Screen NEGATIVE (NEG) 05/21/18 06:10 Influenza A (Rapid) NEG FOR INF A 05/21/18 06:15 Influenza B (Rapid) NEG FOR INF B 05/21/18 06:15 - Physical Exam Vitals and I&O: Vital Signs Temp 97.4 F 05/21/18 08:00 Pulse 69 05/21/18 08:00 Resp 18 05/21/18 08:00 BP 117/61 05/21/18 08:00 Pulse Ox 97 05/21/18 08:00 Intake & Output 05/20/18 05/21/18 05/21/18 18:59 06:59 18:59 Intake Total 1250 848.333 Balance 1250 848.333 Weight (lbs) 81.647 kg 88.451 kg Intake: Intake, IV Amount 300 348.333 Azithromycin 500 mg In 250 Sodium Chloride 0.9% 250 ml @ 250 mls/hr IV Q24HR [facility]AS Rx#:[id number] Piperacillin Sodium/ 300 98.333 Tazobact 4.5 gm In Sodium Chloride 0.9% 100 ml @ 100 mls/hr IV Q6HR ISAIAS Rx #:[id number] Oral 950 500 Other: # Voids 4 1 # Bowel Movements 1 Weight Source Bedscale Bedscale Active Medications: Current Medications Acetaminophen (Tylenol) 650 mg PO Q6H PRN PRN Reason: Pain or Fever >101 Stop: 07/18/18 23:45 Last Admin: 05/20/18 22:24 Dose: 650 mg Azithromycin 500 mg/ Sodium (Chloride) 250 mls @ 250 mls/hr IV Q24HR [facility] Stop: 07/18/18 22:59 Last Infusion: 05/20/18 23:26 Dose: Infused Piperacillin Sod/Tazobactam (Sod 4.5 gm/ Sodium Chloride) 100 mls @ 100 mls/hr IV Q6HR [facility] Stop: 07/19/18 00:00 Last Admin: 05/21/18 05:53 Dose: 100 mls/hr General: no acute distress, well developed, well nourished HEENT: atraumatic, normocephalic, EOMI, moist mucous membrane Neck: supple, no thyromegaly, no lymphadenopathy, no rigid Cardiovascular: S1S2, regular Lungs: clear to auscultation bilaterally, clear to percussion Abdomen: soft, no tender, no distended, no mass, no rebound Extremities: no cyanosis, no clubbing, no edema Neurological: awake, alert, oriented Skin: intact - Procedures Procedures: Procedures Procedure Code Date DELIVERY ONLY 26604 11/21/07 EXTRACTION OF PRODUCTS OF CONCEPTION, RETAINED, VIA OPENING [id number] 01/02/15 MONITORING NOS 75.34 09/09/07 NON-STRESS TEST 17955 09/09/07 IMMUNIZATION ADMIN 15384 01/12/13 IMMUNIZATION ADMIN EACH ADD 55724 01/12/13 INFLUENZA VACCINATION 99.52 01/12/13 INJECT/INFUSE NEC 99.29 01/12/13 INSERT CERVICAL DILATOR 93465 11/21/07 LOW CERVICAL 74.1 11/21/07 SURG INDUCT LABOR NEC 73.1 11/21/07 TREATMENT OF MISCARRIAGE 82954 01/02/15 VACCINATION NEC 99.55 01/12/13 VACCINE TOXOID 41420 01/12/13 Infectious Disease Assmt/Plan - Assessment Assessment: 1. Sepsis on presentation. 2. Pneumonia, left lower lobe pneumonia. 3. Cavitary lesion in the left lung. 4. Chronic cough. 5. Mild urinary tract infection with hematuria. - Plan Plan: Continue the same treatment.
--- NOTE | 2018-05-21 19:26 | Progress Notes ---
DATE: 05/21/2018 PATIENT'S ID: A 48-year-old female. The patient seen and examined. The patient is lying in the bed. No new complaint. Infectious Disease input noted. PHYSICAL EXAMINATION: VITAL SIGNS: Temperature 97.4, pulse is 70, respiratory rate is 18, blood pressure 117/61. HEENT: No facial asymmetry. NECK: Supple, no JVD. HEART: Regular. CHEST AND LUNGS: Equal in expansion with fine basilar crackles on the left lower base noted. ABDOMEN: Soft. EXTREMITIES: No edema. NEUROLOGIC: Nonfocal. AVAILABLE DIAGNOSTIC DATA: HIV being negative. RA factor is 10.1. Influenza A and B are negative. CLINICAL IMPRESSION: Left lower lobe pneumonia with cavitary lesion has air fluid level, workup under progress. PLAN: 1. IV Zosyn and Zithromax for now. Continue other medication. 2. Symptomatic treatment. 3. Airborne isolation. 4. Follow consult recommendation 5. Care plan reviewed and discussed. JOB# [id number]
[2018-05-21] MEDS: Azithromycin 500 MG in Sodium Chloride 0.9% 250 ML IV SCH (22:43)
--- NOTE | 2018-05-22 17:14 | History & Physical ---
ADMIT DATE: 05/20/2018 REASON FOR CONSULTATION: Abnormal chest x-ray. HISTORY OF PRESENT ILLNESS: This is a 48-year-old. She has had flu-like symptoms 2 days prior to coming to the hospital. Subsequently, the patient has some feverish feeling, some coughing and chest congestion, came to the Emergency Room. Subsequently, initial workup was done and was found to have abnormal x-ray and the patient was admitted with suspicion of tuberculosis with questionable cavitary lesion. The patient denied of hemoptysis. Denied any fever, has not lost any weight. Denies of any pleuritic chest pain, no swelling of the legs. No sinus congestion and not taking any medication. PAST MEDICAL HISTORY: 1. None except for losing weight purposefully trying to. 2. History suggestive of sleep apnea syndrome. 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 Denies of any smoking, alcohol 20 years. FAMILY HISTORY: None. PREVIOUS CHILD HISTORY: None. ALLERGIES: None. PHYSICAL EXAMINATION: GENERAL: This is middle-aged looking female, awake, alert, oriented, not in acute distress. VITAL SIGNS: The patient's recorded vitals: Temperature is 98.4, blood pressure 136/70 and saturation is 98 and the patient is afebrile. HEAD, EYES, EARS, NOSE, AND THROAT: Head is essentially unremarkable. Pupils appear to be equal and reacting to light. Conjunctivae are pink. Sclerae are white. Ears externally appears to be okay. Oral cavity essentially unremarkable. NECK: No nodes in the neck could be palpated. Good bilateral carotid upstroke and no palpable nodes in the neck could be appreciated. CHEST: Appears to be clear with occasional rhonchi. HEART: Regular. ABDOMEN: Soft, nontender. EXTREMITIES: Shows no peripheral edema. IMAGING: CT shows chronic fibrocalcific cylindrical type of a bleb/cavitary type lesion, though which is continuously with a right lower lobe bronchus and also there are areas of calcific probably wall including calcified surrounding that area of abnormality has been calcified. IMPRESSION: This is abnormal cavity, probably old disease or bronchiectasis, I do not think this patient has active disease of any kind, except for recently suspected flu. PLAN AND SUGGESTIONS: Okay pulmonary baltazar to discharge, can be followed up as an outpatient and will discuss with Dr. Hughes and go from there. JOB# [id number] GAURAV
--- NOTE | 2018-05-22 19:07 | Progress Notes ---
DATE: 05/22/2018 SUBJECTIVE: The patient seen and examined. The patient is lying in the bed. No new event. Sputum AFB x1 is negative. Blood cultures are negative. Medication admission record is reviewed. Infectious Disease note reviewed. Pulmonary consult is still pending. PHYSICAL EXAMINATION: VITAL SIGNS: Temperature 96.1, pulse 62, respiratory rate 18, and blood pressure 120/60. HEENT: No facial asymmetry. NECK: Supple, no JVD. HEART: Regular. CHEST AND LUNGS: Equal in expansion with decreased breath sounds at left base. ABDOMEN: Soft. No guarding or rebound. No palpable mass. EXTREMITIES: No edema. NEUROLOGIC: Nonfocal. CLINICAL IMPRESSION: Left lower pneumonia with cavitary lesion, has air fluid level. PLAN: 1. Respiratory isolation. 2. IV Zosyn and Zithromax. 3. Pulmonary input pending. 4. Follow Infectious Disease recommendation. 5. Symptoms management. 6. Care plan reviewed and discussed with staff. JOB# [id number]
[2018-05-23 05:41] LABS: % BASOPHILS 0.3 % (0.0-2.0); % LYMPHOCYTES 19.2 % (20.0-50.0); % NEUTROPHILS 69.5 % (40.0-80.0); EOSINOPHILE ABSOLUTE 0.4 Th/cmm (0.1-0.4); HEMATOCRIT 36.6 % (41.0-60); HEMOGLOBIN 12.2 gm/dL (12-16); LYMPHOCYTE ABSOLUTE 1.8 Th/cmm (1.5-3.0); MEAN CELL VOLUME 91.8 fl (81-100); MEAN CORPUSCULAR HEMOGLOBIN 30.5 pg (27.0-31.0); MEAN CORPUSCULAR HGB CONC 33.3 pg (28.0-36.0); MONOCYTE ABSOLUTE 0.6 Th/cmm (0.3-1.0); NEUTROPHILE ABSOLUTE 6.4 Th/cmm (1.8-8.0); PLATELET COUNT 337 Th/cmm (150-400); RED BLOOD COUNT 3.99 Mil/cmm (3.80-5.10); WHITE BLOOD COUNT 9.2 Th/cmm (4.8-10.8)
[2018-05-23 06:02] LABS: ALB/GLOB RATIO 1.1 (1.0-1.8); ALBUMIN 3.6 gm/dL (3.7-5.3); ALKALINE PHOSPHATASE 111 U/L (34-104); ANION GAP 12.4 (7.0-16.0); BUN - UREA NITROGEN 10 mg/dL (7-25); CALCIUM SERUM 8.8 mg/dL (8.6-10.3); CARBON DIOXIDE 26.8 mEq/L (21.0-31.0); CHLORIDE 103 mEq/L (98-107); CREATININE - SERUM 0.7 mg/dL (0.6-1.2); GFR AFRICAN-AMERICAN > 60.0 ml/min (>90); GFR NON AFRICAN-AMERICAN > 60.0 ml/min; GLUCOSE 92 mg/dL (70-105); POTASSIUM SERUM 3.2 mEq/L (3.5-5.1); SGOT 22 U/L (13-39); SGPT/ALT 35 U/L (7-52); SODIUM SERUM 139 mEq/L (136-145)
[2018-05-23] MEDS ORDERED: Potassium Chloride 20 mEq ER Tab PO ONE (09:05)
[2018-05-23 19:07] LABS: COCCIDIODES CF (SERUM) Negative (Neg:<1:2)
--- NOTE | 2018-05-23 20:16 | Progress Notes ---
DATE: 05/23/2018 IDENTIFICATION: A 48-year-old female. SUBJECTIVE: The patient seen and examined. The patient has no new complaint. Discussed with manager landscape and infectious disease specialist about further treatment plan. According to both the consultants, the patient has chronic fibrotic changes and there is no active tuberculosis going on. Recommend that the patient can be discharged home with medication for asthma considering the patient is asymptomatic and there are no changes for last 2-1/2 years on CAT scan of her chest. PHYSICAL EXAMINATION: VITAL SIGNS: Temperature 97.8, pulse 72, respiratory rate 18, blood pressure 138/80. HEENT: No facial asymmetry. NECK: Supple, no JVD. HEART: Regular. CHEST: Lung equal in expansion expiratory wheezing. ABDOMEN: Soft. EXTREMITIES: No edema. NEUROLOGIC: Nonfocal. 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 According to Infectious Disease and Pulmonary, no clinical evidence of tuberculosis. PLAN: The patient will be discharged to home after clearance by Infection Department here. The patient will be given prescription of Zithromax, Advair, and Ventolin as well. I had discussed with the charge nurse about this treatment plan. JOB# [id number]
[2018-05-23] MEDS: Azithromycin 500 MG in Sodium Chloride 0.9% 250 ML IV SCH ×2 (22:59)
--- NOTE | 2018-05-23 23:55 | Infectious Disease Prog Note ---
Infectious Disease Subjective - Review of Systems Service Date: 05/23/18 Subjective: There is no new change, no fever. Infectious Disease Objective - Results Result Diagrams: 05/23/18 04:57 05/23/18 04:57 Recent Labs: Laboratory Last Values WBC 9.2 Th/cmm (4.8-10.8) 05/23/18 04:57 RBC 3.99 Mil/cmm (3.80-5.10) 05/23/18 04:57 Hgb 12.2 gm/dL (12-16) 05/23/18 04:57 Hct 36.6 % (41.0-60) L 05/23/18 04:57 MCV 91.8 fl (81-100) 05/23/18 04:57 MCH 30.5 pg (27.0-31.0) 05/23/18 04:57 MCHC Differential 33.3 pg (28.0-36.0) 05/23/18 04:57 RDW 12.0 % (11.5-20.0) 05/23/18 04:57 Plt Count 337 Th/cmm (150-400) 05/23/18 04:57 MPV 8.0 fl 05/23/18 04:57 Neutrophils % 69.5 % (40.0-80.0) 05/23/18 04:57 Lymphocytes % 19.2 % (20.0-50.0) L 05/23/18 04:57 Monocytes % 7.0 % (2.0-10.0) 05/23/18 04:57 Eosinophils % 4.0 % (0.0-5.0) 05/23/18 04:57 Basophils % 0.3 % (0.0-2.0) 05/23/18 04:57 ESR 52 mm/hr (0-30) H 05/20/18 06:06 D-Dimer 271 ng/mL (100-400) 05/19/18 17:13 Sodium 139 mEq/L (136-145) 05/23/18 04:57 Potassium 3.2 mEq/L (3.5-5.1) L 05/23/18 04:57 Chloride 103 mEq/L (98-107) 05/23/18 04:57 Carbon Dioxide 26.8 mEq/L (21.0-31.0) 05/23/18 04:57 Anion Gap 12.4 (7.0-16.0) 05/23/18 04:57 BUN 10 mg/dL (7-25) 05/23/18 04:57 Creatinine 0.7 mg/dL (0.6-1.2) 05/23/18 04:57 Est GFR ( Amer) > 60.0 ml/min (>90) 05/23/18 04:57 Est GFR (Non-Af Amer) > 60.0 ml/min 05/23/18 04:57 BUN/Creatinine Ratio 14.3 05/23/18 04:57 Glucose 92 mg/dL (70-105) 05/23/18 04:57 Whole Bld Lactic Acid 1.64 mmol/L (0.60-1.99) 05/19/18 17:13 Calcium 8.8 mg/dL (8.6-10.3) 05/23/18 04:57 Total Bilirubin 1.0 mg/dL (0.3-1.0) 05/23/18 04:57 AST 22 U/L (13-39) 05/23/18 04:57 ALT 35 U/L (7-52) 05/23/18 04:57 Alkaline Phosphatase 111 U/L (34-104) H 05/23/18 04:57 Total Protein 7.0 gm/dL (6.0-8.3) 05/23/18 04:57 Albumin 3.6 gm/dL (3.7-5.3) L 05/23/18 04:57 Globulin 3.4 gm/dL 05/23/18 04:57 Albumin/Globulin Ratio 1.1 (1.0-1.8) 05/23/18 04:57 Urine Source RANDOM 05/19/18 17:30 Urine Color YELLOW 05/19/18 17:30 Urine Clarity HAZY (CLEAR) 05/19/18 17:30 Urine pH 6.0 (4.6 - 8.0) 05/19/18 17:30 Ur Specific [place] 1.010 (1.005-1.030) 05/19/18 17:30 Urine Protein NEGATIVE mg/dL (NEGATIVE) 05/19/18 17:30 Urine Glucose (UA) NEGATIVE mg/dL (NEGATIVE) 05/19/18 17:30 Urine Ketones NEGATIVE mg/dL (NEGATIVE) 05/19/18 17:30 Urine Blood MODERATE (NEGATIVE) H 05/19/18 17:30 Urine Nitrate NEGATIVE (NEGATIVE) 05/19/18 17:30 Urine Bilirubin NEGATIVE (NEGATIVE) 05/19/18 17:30 Urine Urobilinogen 0.2 E.U./dL (0.2 - 1.0) 05/19/18 17:30 Ur Leukocyte Esterase NEGATIVE (NEGATIVE) 05/19/18 17:30 Urine RBC NONE SEEN /hpf (0-5) 05/19/18 17:30 Urine WBC 6-10 /hpf (0-5) H 05/19/18 17:30 Ur Epithelial Cells FEW /lpf (FEW) 05/19/18 17:30 Urine Bacteria MODERATE /hpf (NONE SEEN) H 05/19/18 17:30 Urine Test NEGATIVE 05/19/18 17:15 Rheumatoid Factor 10.1 IU/mL (0.0-13.9) 05/20/18 13:33 ANCA Screen Negative 05/20/18 13:33 Coccidioides Ab Negative (Neg:<1:2) 05/20/18 13:33 HIV 1&2 Antibody Screen NEGATIVE (NEG) 05/21/18 06:10 Influenza A (Rapid) NEG FOR INF A 05/21/18 06:15 Influenza B (Rapid) NEG FOR INF B 05/21/18 06:15 - Physical Exam Vitals and I&O: Vital Signs Temp 99.4 F 05/23/18 20:00 Pulse 81 05/23/18 20:00 Resp 20 05/23/18 20:00 BP 160/71 05/23/18 20:00 Pulse Ox 96 05/23/18 20:00 Intake & Output 05/23/18 05/23/18 05/24/18 06:59 18:59 06:59 Intake Total 450 200 900 Balance 450 200 900 Weight (lbs) 88.451 kg 88.451 kg Intake: Intake, IV Amount 450 200 Azithromycin 500 mg In 250 Sodium Chloride 0.9% 250 ml @ 250 mls/hr IV Q24HR [facility] Rx#:[id number] Piperacillin Sodium/ 200 200 Tazobact 4.5 gm In Sodium Chloride 0.9% 100 ml @ 100 mls/hr IV Q6HR [facility] Rx #:[id number] Oral 900 Other: # Voids 5 3 # Bowel Movements 1 1 Weight Source Bedscale Bedscale Active Medications: Current Medications Acetaminophen (Tylenol) 650 mg PO Q6H PRN PRN Reason: Pain or Fever >101 Stop: 07/18/18 23:45 Last Admin: 05/22/18 19:05 Dose: 650 mg Azithromycin 500 mg/ Sodium (Chloride) 250 mls @ 250 mls/hr IV Q24HR [facility] Stop: 07/18/18 22:59 Last Admin: 05/23/18 22:59 Dose: 250 mls/hr Piperacillin Sod/Tazobactam (Sod 4.5 gm/ Sodium Chloride) 100 mls @ 100 mls/hr IV Q6HR [facility] Stop: 07/19/18 00:00 Last Admin: 05/23/18 18:40 Dose: 100 mls/hr Ondansetron HCl (Zofran) 4 mg IV Q6H PRN PRN Reason: Nausea / Vomiting Stop: 07/22/18 09:04 Last Admin: 05/23/18 09:39 Dose: 4 mg General: no acute distress, well developed, well nourished HEENT: atraumatic, normocephalic, PERRLA, EOMI, moist mucous membrane Neck: supple, no thyromegaly Cardiovascular: S1S2, regular Lungs: clear to auscultation bilaterally, clear to percussion Abdomen: soft, bowel sounds, no tender, no distended, no mass, no rebound, no hepatomegaly Extremities: no cyanosis, no clubbing, no edema Neurological: awake, alert, oriented Skin: intact - Procedures Procedures: Procedures Procedure Code Date DELIVERY ONLY 82768 11/21/07 EXTRACTION OF PRODUCTS OF CONCEPTION, RETAINED, VIA OPENING [id number] 01/02/15 MONITORING NOS 75.34 09/09/07 NON-STRESS TEST 48766 09/09/07 IMMUNIZATION ADMIN 96976 01/12/13 IMMUNIZATION ADMIN EACH ADD [id number] 01/12/13 INFLUENZA VACCINATION 99.52 01/12/13 INJECT/INFUSE NEC 99.29 01/12/13 INSERT CERVICAL DILATOR 56483 11/21/07 LOW CERVICAL 74.1 11/21/07 SURG INDUCT LABOR NEC 73.1 11/21/07 TREATMENT OF MISCARRIAGE 98784 01/02/15 VACCINATION NEC 99.55 01/12/13 VACCINE TOXOID 32239 01/12/13 Infectious Disease Assmt/Plan - Assessment Assessment: 1. Sepsis on presentation. 2. Pneumonia, left lower lobe pneumonia. 3. Cavitary lesion in the left lung. 4. Chronic cough. 5. Mild urinary tract infection with hematuria. - Plan Plan: Continue the same treatment. HARRIET Hughes and agreed with dc plan after clearance from the Infection control department/ public health. Nutritional Asmnt/Malnutr-PDOC - Dietary Evaluation Malnutrition Findings (Please click <Entered> for more info): Nutritional Asmnt/Malnutrition Start: 05/23/18 17: 14 Text: Status: Complete Freq: Protocol: Document 05/23/18 17:22 LCHENG (Rec: 05/23/18 17:34 [email or web address]) Nutritional Asmnt/Malnutrition Patient General Information Nutritional Screening Moderate Risk Diagnosis PNA w/ respiratory-isolation Pertinent Medical Hx/Surgical Hx asthma/COPD, renal stone Subjective Information Pt seen in airbone isolation room, resting in bed. Per EMR, PO intake 25-100%, avg 75%. Current Diet Order/ Nutrition Support regular Pertinent Medications piperacillin, azithromcin Pertinent Labs 05/23 K 3.2, alb 3.6 Nutritional Hx/Data Height 1.63 m Height (Calculated Centimeters) 162.6 Current Weight (lbs) 88.451 kg Weight (Calculated Kilograms) 88.5 Weight (Calculated Grams) 88324.5 [place] Body Weight 120 Body Mass Index (BMI) 33.5 Weight Status Obese GI Symptoms GI Symptoms None Last BM 05/22 Difficult in: None Skin Integrity/Comment: intact Current %PO Good (75-100%) Estimated Nutritional Goals BEE in Kcals: Adj wt of IBW Calories/Kcals/Kg 25-30 Kcals Calculated 3187-5245 Protein: Adj wt of IBW Protein g/k Protein Calculated 63 Fluid: ml 1575-1890ml (1ml/kcal) Nutritional Problem 1. Problem Problem alterd nutrition related labs Etiology electrolytes imbalance Signs/Symptoms: K 3.2 Malnutrition Alert Is there a minimum of two criteria No selected? Query Text:Check all the applicable criteria. A minimum of two criteria are recommended for diagnosis of either severe or non-severe malnutrition. Malnutrition Related to Morbid Obesity Malnutrition related to morbid obesity No Intervention/Recommendation Comments 1. Continue with regular diet as ordered. MD to replace electrolytes as needed. 2. Monitor PO intake, wt, labs and skin integrity 3. F/U as low risk in 7 days Expected Outcomes/Goals Expected Outcomes/Goals 1. PO intake to meet at least 75% of nutritional needs. 2. Wt stability, skin to remain intact, labs to approach WNL.
--- NOTE | 2018-05-24 15:29 | Internal Medicine Prog Note ---
Internal Medicine Subjective - Subjective Patient seen and examined:: with staff, chart reviewed Patient is:: awake, verbal, interactive Patient Complaints of:: congestion Per staff patient has:: no adverse event, no episodes of fall, eating well Internal Medicine Objective - Results Result Diagrams: 05/23/18 04:57 05/23/18 04:57 Recent Labs: Laboratory Last Values WBC 9.2 Th/cmm (4.8-10.8) 05/23/18 04:57 RBC 3.99 Mil/cmm (3.80-5.10) 05/23/18 04:57 Hgb 12.2 gm/dL (12-16) 05/23/18 04:57 Hct 36.6 % (41.0-60) L 05/23/18 04:57 MCV 91.8 fl (81-100) 05/23/18 04:57 MCH 30.5 pg (27.0-31.0) 05/23/18 04:57 MCHC Differential 33.3 pg (28.0-36.0) 05/23/18 04:57 RDW 12.0 % (11.5-20.0) 05/23/18 04:57 Plt Count 337 Th/cmm (150-400) 05/23/18 04:57 MPV 8.0 fl 05/23/18 04:57 Neutrophils % 69.5 % (40.0-80.0) 05/23/18 04:57 Lymphocytes % 19.2 % (20.0-50.0) L 05/23/18 04:57 Monocytes % 7.0 % (2.0-10.0) 05/23/18 04:57 Eosinophils % 4.0 % (0.0-5.0) 05/23/18 04:57 Basophils % 0.3 % (0.0-2.0) 05/23/18 04:57 ESR 52 mm/hr (0-30) H 05/20/18 06:06 D-Dimer 271 ng/mL (100-400) 05/19/18 17:13 Sodium 139 mEq/L (136-145) 05/23/18 04:57 Potassium 3.2 mEq/L (3.5-5.1) L 05/23/18 04:57 Chloride 103 mEq/L (98-107) 05/23/18 04:57 Carbon Dioxide 26.8 mEq/L (21.0-31.0) 05/23/18 04:57 Anion Gap 12.4 (7.0-16.0) 05/23/18 04:57 BUN 10 mg/dL (7-25) 05/23/18 04:57 Creatinine 0.7 mg/dL (0.6-1.2) 05/23/18 04:57 Est GFR ( Amer) > 60.0 ml/min (>90) 05/23/18 04:57 Est GFR (Non-Af Amer) > 60.0 ml/min 05/23/18 04:57 BUN/Creatinine Ratio 14.3 05/23/18 04:57 Glucose 92 mg/dL (70-105) 05/23/18 04:57 Whole Bld Lactic Acid 1.64 mmol/L (0.60-1.99) 05/19/18 17:13 Calcium 8.8 mg/dL (8.6-10.3) 05/23/18 04:57 Total Bilirubin 1.0 mg/dL (0.3-1.0) 05/23/18 04:57 AST 22 U/L (13-39) 05/23/18 04:57 ALT 35 U/L (7-52) 05/23/18 04:57 Alkaline Phosphatase 111 U/L (34-104) H 05/23/18 04:57 Total Protein 7.0 gm/dL (6.0-8.3) 05/23/18 04:57 Albumin 3.6 gm/dL (3.7-5.3) L 05/23/18 04:57 Globulin 3.4 gm/dL 05/23/18 04:57 Albumin/Globulin Ratio 1.1 (1.0-1.8) 05/23/18 04:57 Urine Source RANDOM 05/19/18 17:30 Urine Color YELLOW 05/19/18 17:30 Urine Clarity HAZY (CLEAR) 05/19/18 17:30 Urine pH 6.0 (4.6 - 8.0) 05/19/18 17:30 Ur Specific [place] 1.010 (1.005-1.030) 05/19/18 17:30 Urine Protein NEGATIVE mg/dL (NEGATIVE) 05/19/18 17:30 Urine Glucose (UA) NEGATIVE mg/dL (NEGATIVE) 05/19/18 17:30 Urine Ketones NEGATIVE mg/dL (NEGATIVE) 05/19/18 17:30 Urine Blood MODERATE (NEGATIVE) H 05/19/18 17:30 Urine Nitrate NEGATIVE (NEGATIVE) 05/19/18 17:30 Urine Bilirubin NEGATIVE (NEGATIVE) 05/19/18 17:30 Urine Urobilinogen 0.2 E.U./dL (0.2 - 1.0) 05/19/18 17:30 Ur Leukocyte Esterase NEGATIVE (NEGATIVE) 05/19/18 17:30 Urine RBC NONE SEEN /hpf (0-5) 05/19/18 17:30 Urine WBC 6-10 /hpf (0-5) H 05/19/18 17:30 Ur Epithelial Cells FEW /lpf (FEW) 05/19/18 17:30 Urine Bacteria MODERATE /hpf (NONE SEEN) H 05/19/18 17:30 Urine Test NEGATIVE 05/19/18 17:15 Rheumatoid Factor 10.1 IU/mL (0.0-13.9) 05/20/18 13:33 ANCA Screen Negative 05/20/18 13:33 Coccidioides Ab Negative (Neg:<1:2) 05/20/18 13:33 HIV 1&2 Antibody Screen NEGATIVE (NEG) 05/21/18 06:10 Influenza A (Rapid) NEG FOR INF A 05/21/18 06:15 Influenza B (Rapid) NEG FOR INF B 05/21/18 06:15 - Physical Exam Vitals and I&O: Vital Signs Temp 97.3 F 05/24/18 08:00 Pulse 68 05/24/18 08:00 Resp 18 05/24/18 08:00 BP 129/74 05/24/18 08:00 Pulse Ox 96 05/24/18 08:00 Intake & Output 05/23/18 05/24/18 05/24/18 18:59 06:59 18:59 Intake Total 200 1100 400 Balance 200 1100 400 Weight (lbs) 88.451 kg 88.451 kg Intake: Intake, IV Amount 200 200 100 Piperacillin Sodium/ 200 200 100 Tazobact 4.5 gm In Sodium Chloride 0.9% 100 ml @ 100 mls/hr IV Q6HR [facility] Rx #:[id number] Oral 900 300 Other: # Voids 3 2 # Bowel Movements 1 Weight Source Bedscale Bedscale Active Medications: Current Medications Acetaminophen (Tylenol) 650 mg PO Q6H PRN PRN Reason: Pain or Fever >101 Stop: 07/18/18 23:45 Last Admin: 05/22/18 19:05 Dose: 650 mg Azithromycin 500 mg/ Sodium (Chloride) 250 mls @ 250 mls/hr IV Q24HR [facility] Stop: 07/18/18 22:59 Last Admin: 05/23/18 22:59 Dose: 250 mls/hr Piperacillin Sod/Tazobactam (Sod 4.5 gm/ Sodium Chloride) 100 mls @ 100 mls/hr IV Q6HR [facility] Stop: 07/19/18 00:00 Last Admin: 05/24/18 11:44 Dose: 100 mls/hr Ondansetron HCl (Zofran) 4 mg IV Q6H PRN PRN Reason: Nausea / Vomiting Stop: 07/22/18 09:04 Last Admin: 05/23/18 09:39 Dose: 4 mg General: alert HEENT: NC/AT, PERRLA Neck: Supple, No JVD Lungs: rales, ronchi Cardiovascular: RRR, Normal S1, Normal S2 Abdomen: soft, non-tender, globular Extremities: excoriation - Procedures Procedures: Procedures Procedure Code Date DELIVERY ONLY 65615 11/21/07 EXTRACTION OF PRODUCTS OF CONCEPTION, RETAINED, VIA OPENING [id number] 01/02/15 MONITORING NOS 75.34 09/09/07 NON-STRESS TEST 17615 09/09/07 IMMUNIZATION ADMIN 75905 01/12/13 IMMUNIZATION ADMIN EACH ADD [id number] 01/12/13 INFLUENZA VACCINATION 99.52 01/12/13 INJECT/INFUSE NEC 99.29 01/12/13 INSERT CERVICAL DILATOR 34533 11/21/07 LOW CERVICAL 74.1 11/21/07 SURG INDUCT LABOR NEC 73.1 11/21/07 TREATMENT OF MISCARRIAGE 37541 01/02/15 VACCINATION NEC 99.55 01/12/13 VACCINE TOXOID 08360 01/12/13 Internal Medicine Assmt/Plan - Assessment Assessment: - Assessment Assessment: 1. Sepsis on presentation. 2. Pneumonia, left lower lobe pneumonia. 3. Cavitary lesion in the left lung. 4. Chronic cough. 5. Mild urinary tract infection with hematuria. - Plan Plan: Continue the same treatment. - Plan Plan: dr mirna mcgee to talk to dr cuello with public health cpm Nutritional Asmnt/Malnutr-PDOC - Dietary Evaluation Malnutrition Findings (Please click <Entered> for more info): Nutritional Asmnt/Malnutrition Start: 05/23/18 17: 14 Text: Status: Complete Freq: Protocol: Document 05/23/18 17:22 LCHENG (Rec: 05/23/18 17:34 LCHENG [email or web address]) Nutritional Asmnt/Malnutrition Patient General Information Nutritional Screening Moderate Risk Diagnosis PNA w/ respiratory-isolation Pertinent Medical Hx/Surgical Hx asthma/COPD, renal stone Subjective Information Pt seen in airbone isolation room, resting in bed. Per EMR, PO intake 25-100%, avg 75%. Current Diet Order/ Nutrition Support regular Pertinent Medications piperacillin, azithromcin Pertinent Labs 05/23 K 3.2, alb 3.6 Nutritional Hx/Data Height 1.63 m Height (Calculated Centimeters) 162.6 Current Weight (lbs) 88.451 kg Weight (Calculated Kilograms) 88.5 Weight (Calculated Grams) 87219.5 [place] Body Weight 120 Body Mass Index (BMI) 33.5 Weight Status Obese GI Symptoms GI Symptoms None Last BM 05/22 Difficult in: None Skin Integrity/Comment: intact Current %PO Good (75-100%) Estimated Nutritional Goals BEE in Kcals: Adj wt of IBW Calories/Kcals/Kg 25-30 Kcals Calculated 8744-0399 Protein: Adj wt of IBW Protein g/k Protein Calculated 63 Fluid: ml 1575-1890ml (1ml/kcal) Nutritional Problem 1. Problem Problem alterd nutrition related labs Etiology electrolytes imbalance Signs/Symptoms: K 3.2 Malnutrition Alert Is there a minimum of two criteria No selected? Query Text:Check all the applicable criteria. A minimum of two criteria are recommended for diagnosis of either severe or non-severe malnutrition. Malnutrition Related to Morbid Obesity Malnutrition related to morbid obesity No Intervention/Recommendation Comments 1. Continue with regular diet as ordered. MD to replace electrolytes as needed. 2. Monitor PO intake, wt, labs and skin integrity 3. F/U as low risk in 7 days Expected Outcomes/Goals Expected Outcomes/Goals 1. PO intake to meet at least 75% of nutritional needs. 2. Wt stability, skin to remain intact, labs to approach WNL.
[2018-05-24] MEDS: Azithromycin 500 MG in Sodium Chloride 0.9% 250 ML IV SCH (22:54)
--- NOTE | 2018-05-25 22:43 | Discharge Summary ---
DATE OF DISCHARGE: 05/25/2018 CHIEF COMPLAINT: Fever, cough, and congestion. FINAL DIAGNOSES: The patient signed against medical advice. Cavitary lesion in the left lung, status post sepsis, chronic cough, urinary tract infection, hematuria, noncompliance. HISTORY: This is a 48-year-old female who apparently presented to the ER with fever, cough, and congestion for the last 5 days. The patient had CT, which showed cavitary lesion. The patient was admitted for further management. HOSPITAL COURSE: The patient was admitted, on isolation. The patient has been seen by Dr. Mateus Lai for Infectious Diseases and Dr. Edward Lai for Pulmonary. The patient was on IV antibiotic and ____ involved. Communication was being made with Dr. Estrada. The patient has one AFB negative. TB interferon also came back negative. The patient and her wanted to sign out against medical advice and ____ were notified and ____ signed against medical advice. CONDITION ON DISCHARGE: The patient signed against medical advice. JOB# [id number]
== END 2018-05-25 09:40 | disposition left against medical advice (07) | DRG 720 ==
LOC: ER 16:45 → MSI 22:19
PROVIDERS: ADMIT Internal Medicine; ATTEND Internal Medicine
DX: A41.9 Sepsis, unspecified organism (principal); J18.1 Lobar pneumonia, unspecified organism; N39.0 Urinary tract infection, site not specified; A15.0 Tuberculosis of lung; J44.0 Chronic obstructive pulmonary disease with (acute) lower respiratory infection; M19.90 Unspecified osteoarthritis, unspecified site; R91.1 Solitary pulmonary nodule; R31.9 Hematuria, unspecified; Z53.21 Procedure and treatment not carried out due to patient leaving prior to being seen by health care provider; Z91.14 Patient's other noncompliance with medication regimen
CPT/HCPCS: 36415-UA; 71045-TC; 71250-TC; 80053-TC; 81001-TC; 81025-TC; 83605; 85025-TC; 85379-TC; 85652-TC; 86021-90; 86430-90; 86480-90; 86635-90; 86703-TC; 87070; 87086-90; 87116-90; 87205-90; 87206-90; 87395-90; 87804-TC; 96374; 96375; J0456; J0696; J1956; J2405; J2543; J7030; J7040; Z7610